=== PATIENT | female | born 1975 | race Caucasian/White ===

== ENCOUNTER 2018-09-08 14:53 | Outpatient (CLI) | payer OTHER | END 2018-09-08 14:54 | disposition home or self-care (01) | LOC: BICMAMMO 14:53 | PROVIDERS: ATTEND Obstetrics & Gynecology | DX: Z12.31 Encounter for screening mammogram for malignant neoplasm of breast (principal); Z80.3 Family history of malignant neoplasm of breast | CPT/HCPCS: 77063; 77067 ==

== ENCOUNTER 2019-02-01 12:34 | Outpatient (CLI) | payer OTHER ==
--- NOTE | 2019-02-01 13:34 | MRI ---
Exam: MRI cervical spine without contrast HISTORY: Neck pain. Right-sided arm pain and numbness, x2 weeks.. COMPARISON: None. FINDINGS: Appropriate T1 marrow signal intensity of the cervical vertebra. Vertebral body height is maintained . No fracture. No significant STIR hyperintensity to suggest vertebral body edema or ligamentous injury. Straightening of normal cervical lordosis is noted. 1 mm of anterolisthesis of C2 upon C3, 1. 2 mm anterolisthesis of C3 upon C4. Visualized brain parenchyma, cervical medullary junction, cervical cord and the upper thoracic cord h ave a normal size and signal intensity. Appropriate signal intensity of visualized spinal cord. C2-C3: No significant central canal stenosis or neural foraminal narrowing C3-C4: No significant central canal stenosis. Small right paracentral disc osteophyte complex does no t cause any mass effect upon the spinal cord or thecal sac. Neural foramina are patent. C4-C5: Broad-based disc osteophyte complex deforms the ventral thecal sac and deforms the ventral cor d. Subarachnoid space is maintained. Mild central canal stenosis. Mild right foraminal narrowing due to uncovertebral hypertrophy. Left neural foramen is patent C5-C6: Broad-based disc osteophyte complex abuts the thecal sac. Ventral subarachnoid space is slight ly effaced secondary to left paracentral. Mild central canal stenosis. Mild right and moderate left foraminal narrowing. C6-C7: Broad-based disc osteophyte complex with a right paracentral component. Mild central canal janell nosis. Moderate to severe right foraminal narrowing due to disc material as well as uncovertebral hypertrophy. Left neural foramen is patent C7-T1: No significant central canal stenosis. Neural foramina are patent. IMPRESSION: 1. Multilevel degenerative changes of the cervical spine as detailed above. Varying degrees of centra l canal stenosis as detailed above 2. Moderate to severe right foraminal narrowing in part due to disc material as well as uncovertebral hypertrophy. 3. Spondylolisthesis and straightening of normal cervical lordosis as described above. Transcribed Date/Time: 02/01/2019 2:20 PM
== END 2019-02-01 12:35 | disposition home or self-care (01) ==
LOC: TBSIIMAG 12:34
PROVIDERS: ATTEND Neurological Surgery
DX: M47.22 Other spondylosis with radiculopathy, cervical region (principal); M48.02 Spinal stenosis, cervical region; M43.12 Spondylolisthesis, cervical region; M40.50 Lordosis, unspecified, site unspecified
CPT/HCPCS: 72141

== ENCOUNTER 2019-02-27 07:11 | Day surgery (SDC) | payer OTHER ==
[2019-02-27] MEDS ORDERED: Sodium Chloride 0.9% 10 ML ONE (09:52)
[2019-02-27] MEDS ORDERED: Fentanyl 250 MCG/5 ML VIAL ONE (09:58)
[2019-02-27 10:02] LABS: #Basophils 0.1 thou/uL (0.0-0.2); #Eosinphils 0.1 thou/uL (0.0-0.7); #Lymphocytes 2.2 thou/uL (1.20-3.40); #Monocytes 0.6 thou/uL (0.11-0.59); %Basophils 1.4 % (0.0-1.0); %Eosinophils 1.2 % (0.0-10.0); %Monocytes 7.2 % (0.0-10.0); %Neutrophils 62.3 % (42.0-75.0); Hemoglobin 14.7 g/dL (12.0-16.0); Mean Corpuscular HGB CONC 34.6 g/dL (32.0-36.0); Mean Corpuscular Hemoglobin 32.7 pg (27.0-31.0); Mean Corpuscular Volume 94.6 fL (78.0-98.0); Mean Platelet Volume 7.7 fL (7.4-10.4); Platelet Count 360 thou/uL (130-400); RBC Distribution Width 12.3 % (11.5-14.5); Red Blood Cell (RBC) Count 4.51 mill/uL (4.20-5.40)
[2019-02-27] MEDS ORDERED: Fentanyl 100 MCG/2 ML VIAL ONE ×3 (10:02→12:31)
[2019-02-27] MEDS ORDERED: Dexamethasone 20 MG/5 ML VIAL ONE (11:16)
[2019-02-27] MEDS ORDERED: PROPOFOL 200 MG/20 ML VIAL ONE (11:16)
[2019-02-27] MEDS ORDERED: Ondansetron PF 4 MG/2 ML Vial ONE (11:16)
[2019-02-27] MEDS ORDERED: Glycopyrrolate 0.2 MG/ML 5 ML SYRINGE ONE (11:16)
[2019-02-27] MEDS ORDERED: Rocuronium Bromide 10 MG/ML (10ML VIAL) ONE (11:16)
[2019-02-27] MEDS ORDERED: Lidocaine 1% PF 5 ML VIAL ONE (11:16)
[2019-02-27] MEDS ORDERED: HYDROmorphone 2 MG/ML VIAL ONE (11:51)
[2019-02-27] MEDS ORDERED: tiZANidine HCl 4 MG TAB ONE (12:20)
[2019-02-27] MEDS ORDERED: HYDROcodone/Acetaminophen 5/325 mg Tablet ONE (13:51)
--- NOTE | 2019-02-27 15:20 | OP ---
DATE OF PROCEDURE: 02/27/2019 HOSPITALIST PHYSICIAN: Kvng Sheth PA-C PROCEDURES PERFORMED: Anterior cervical diskectomy C6-C7, interbody arthrodesis, intervertebral biomechanical device, local morselized autograft, demineralized bone matrix, anterior titanium instrumentation, C6-C7. DESCRIPTION OF PROCEDURE: The patient was brought to the operating room and intubated. She was positioned supine with the head in modest extension on a gel-filled donut. An incision was made in the right precervical area and dissected medial to the sternocleidomastoid muscle, identified the anterior cervical spine and the level was confirmed by x-ray. We placed distraction across C6-C7. Using the operating microscope and microdissection techniques, we completely removed the intervertebral disk and osteophytic disease decompressing the neural elements to the level of the dura. The bony endplates were then decorticated for the purpose of arthrodesis and appropriate-sized intervertebral biomechanical PEEK device was brought into the field, filled with demineralized bone matrix, local morselized autograft, and tapped in place securely at C6-C7. Next, an anterior plate was brought into the field and secured to C6 and C7 using two 14-mm screws at each level. The wound was then extensively irrigated and MAC hemostasis was secured. The wound was closed in anatomic layers. Job ID: [id number]
== END 2019-02-27 14:25 | disposition home or self-care (01) ==
LOC: SDC 07:11
PROVIDERS: ATTEND Neurological Surgery
PROC: 0RG10A0 Fusion of Cervical Vertebral Joint with Interbody Fusion Device, Anterior Approach, Anterior Column, Open Approach (ICD-10-PCS; principal; 2019-02-27)
PROC: 0RB30ZZ Excision of Cervical Vertebral Disc, Open Approach (ICD-10-PCS; principal; 2019-02-27)
PROC: 0RG1070 Fusion of Cervical Vertebral Joint with Autologous Tissue Substitute, Anterior Approach, Anterior Column, Open Approach (ICD-10-PCS; principal; 2019-02-27)
DX: M50.123 Cervical disc disorder at C6-C7 level with radiculopathy (principal); F32.9 Major depressive disorder, single episode, unspecified; G43.909 Migraine, unspecified, not intractable, without status migrainosus
CPT/HCPCS: 76000; 85025; 93005; 93010; C1713; C1776; J0131; J0690; J1170; J3010; J3490

== ENCOUNTER 2019-03-15 15:11 | Outpatient (CLI) | payer OTHER ==
--- NOTE | 2019-03-15 16:21 | RAD ---
CERVICAL SPINE 3 VIEWS: INDICATION: Cervical radiculopathy. COMPARISON: Prior MRI of the cervical spine dated 02/01/2019. FINDINGS: Since the comparison examination, there has been interval placement of ACD at C6-7. There is some re versal of the cervical lordosis which is stable. Instrumentation projects in the expected position. There is mild prevertebral soft tissue swelling overlying the ACDF site, likely postsurgical in natu re. Lung apices are clear. Lateral masses are symmetric. IMPRESSION: Postoperative cervical spine. POS: CET
== END 2019-03-15 15:12 | disposition home or self-care (01) ==
LOC: TBSIIMAG 15:11
PROVIDERS: ATTEND Neurological Surgery
DX: M54.12 Radiculopathy, cervical region (principal); Z98.890 Other specified postprocedural states
CPT/HCPCS: 72040

== ENCOUNTER 2019-04-18 14:58 | Outpatient (CLI) | payer OTHER ==
--- NOTE | 2019-04-18 15:14 | RAD ---
EXAM: XR Cerv Sp Ap Lat STANDARD PROVIDED CLINICAL HISTORY: Follow-up surgery COMPARISON: 03/15/2019 FINDINGS: Cervical alignment appears unchanged. Changes of ACDF at C6-7 are redemonstrated, without evidence fo r hardware loosening or migration. Disc space narrowing and endplate degenerative changes at C5-6 redemonstrated. Visualized lung apices appear clear. No prevertebral soft tissue swelling apparent. IMPRESSION: Stable exam.
== END 2019-04-18 14:59 | disposition home or self-care (01) ==
LOC: TBSIIMAG 14:58
PROVIDERS: ATTEND Neurological Surgery
DX: M50.20 Other cervical disc displacement, unspecified cervical region (principal)
CPT/HCPCS: 72040

== ENCOUNTER 2019-09-27 14:55 | Outpatient (CLI) | payer BC ==
--- NOTE | 2019-09-27 16:08 | MMO ---
Right Breast MAMMO Unilat Diag DDI RT+CASSIE. CLINICAL HISTORY: Patient is 44 years old and is seen for additional evaluation requested from prior study. The patient has the following family history of breast cancer: grandmother, malignant (generic). The patient has no personal history of cancer. VIEWS: The views performed were: right craniocaudal spot compression with tomosynthesis; right mediolateral oblique spot compression with tomosynthesis; and right mediolateral with tomosynthesis. FILMS COMPARED: The present examination has been compared to prior imaging studies performed at [facility] on 09/05/2019, and at [facility] on 03/18/2017, 09/08/2018 and 09/27/2019. This study has been interpreted with the assistance of computer-aided detection. MAMMOGRAM FINDINGS: There are scattered fibroglandular densities. Finding 1: There is a round mass measuring 4 millimeters with circumscribed margins seen in the right breast at 9 o'clock. Cyst on ultrasound. Finding 2: There are several stable focal asymmetries seen in the right breast. There are no suspicious masses, suspicious calcifications, or new areas of architectural distortion. IMPRESSION: THERE IS NO MAMMOGRAPHIC EVIDENCE OF MALIGNANCY. A ROUTINE FOLLOW-UP MAMMOGRAM IN 1 YEAR IS RECOMMENDED. THE RESULTS OF THIS EXAM WERE SENT TO THE PATIENT. ACR BI-RADS Category 2 - Benign finding MAMMOGRAPHY NOTE: 1. A negative mammogram report should not delay a biopsy if a dominant of clinically suspicious mass is present. 2. Approximately 10% to 15% of breast cancers are not detected by mammography. 3. Adenosis and dense breasts may obscure an underlying neoplasm. Reported by: MAI SARAH MD Electonically Signed: [id number]
--- NOTE | 2019-09-27 16:13 | ULT ---
EXAM: RIGHT BREAST ULTRASOUND: 09/27/19 HISTORY: Abnormal mammographic finding at 9 o'clock in the right breast. The right breast was evaluated with attention to the 9 o'clock region, at approximately 5 cm from the nipple. There is a round 0.3 x 0.4 cm diameter cyst which appears to correspond to the nodular area on mammography. IMPRESSION: BIRADS 2: Benign Finding(s) Routine annual screening mammography (for women over age 40). Continued annual follow-up screening mammograms. POS: OFF
== END 2019-09-27 14:56 | disposition home or self-care (01) ==
LOC: BICMAMMO 14:55
PROVIDERS: ATTEND Student in an Organized Health Care Education/Training Program
DX: R92.2 Inconclusive mammogram (principal)
CPT/HCPCS: G0279

== ENCOUNTER 2020-11-07 15:12 | Outpatient (CLI) | payer BC | END 2020-11-07 15:13 | disposition home or self-care (01) | LOC: BICMAMMO 15:12 | PROVIDERS: ATTEND Student in an Organized Health Care Education/Training Program | DX: Z12.31 Encounter for screening mammogram for malignant neoplasm of breast (principal); Z80.3 Family history of malignant neoplasm of breast | CPT/HCPCS: 77063; 77067 ==

== ENCOUNTER 2021-07-28 08:15 | Emergency (ER) | payer BC ==
[2021-07-28] MEDS ORDERED: Ondansetron PF 4 MG/2 ML Vial ONE ×3 (09:28→12:06)
[2021-07-28] MEDS ORDERED: Morphine 4 MG/ML VIAL ONE ×3 (09:28→12:06)
[2021-07-28 09:44] LABS: #Eosinphils 0.2 thou/uL (0.0-0.7); #Lymphocytes 1.5 thou/uL (1.20-3.40); #Monocytes 0.6 thou/uL (0.11-0.59); #Neutrophils 5.8 thou/uL (1.40-6.50); %Basophils 0.4 % (0.0-1.0); %Eosinophils 2.1 % (0.0-10.0); %Lymphocytes 18.1 % (21.0-51.0); %Monocytes 7.1 % (0.0-10.0); %Neutrophils 72.4 % (42.0-75.0); Hemoglobin 13.1 g/dL (12.0-16.0); Mean Corpuscular HGB CONC 34.4 g/dL (32.0-36.0); Mean Corpuscular Hemoglobin 32.7 pg (27.0-31.0); Mean Corpuscular Volume 95.1 fL (78.0-98.0); Platelet Count 344 thou/uL (130-400); RBC Distribution Width 11.7 % (11.5-14.5); White Blood Cell (WBC) Count 8.1 thou/uL (4.8-10.8)
[2021-07-28 10:09] LABS: BHCG - Serum Negative (NEGATIVE); Pregs Control Background? CLEAR/WHITE (CLR/WHITE); Pregs Control Bar Appear? YES (CONTROL BAR)
[2021-07-28 10:16] LABS: Bacteria/HPF Rare-Few HPF (None Seen); Bilirubin Negative (Negative); Blood, Urine 3+ (Negative); Clarity Clear (Clear); Glucose, Urine (Dipstick) Normal (Negative); Ketone, Urine Negative (Negative); Leukocyte Negative Leu/uL (Negative); Nitrite Negative (Negative); Protein, Urine (Dipstick) Negative (Neg-Trace); RBC/HPF Greater than 50 HPF (0-3); Specific Gravity, Urine 1.014 (1.002-1.036); Squamous Epithelial 0-3 HPF (0-3); Urobilinogen Normal mg/dL (Less than 2); WBC/HPF 0-3 HPF (0-3)
[2021-07-28] MEDS ORDERED: Ketorolac Tromethamine 30 MG/ML VIAL ONE (10:18)
[2021-07-28 10:22] LABS: ALT (SGPT) 46 U/L (8-55); AST (SGOT) 30 U/L (5-34); Albumin 4.1 g/dL (3.5-5.0); Alkaline Phosphatase 61 U/L (40-110); Anion Gap 12 mmol/L (10-20); BUN (Urea Nitrogen) 11 mg/dL (7.0-18.7); Bilirubin, Total 0.6 mg/dL (0.2-1.2); Calc. Creatinine Clearance 0 mL/min (70-130); Calcium 9.6 mg/dL (7.8-10.44); Carbon Dioxide 22 mmol/L (22-29); Chloride 105 mmol/L (98-107); Globulin 2.5 g/dL (2.4-3.5); Glucose 91 mg/dL (70-105); Lipase 31 U/L (8-78); Potassium 4.2 mmol/L (3.5-5.1); Protein, Total 6.6 g/dL (6.0-8.3); Sodium 135 mmol/L (136-145)
[2021-07-28 10:36] LABS: SARS-CoV-2 NAA Rapid Test Not Detected (NotDetected)
[2021-07-28] MEDS ORDERED: Iopamidol-370 76% 500 ML 1 ML ONE (10:56)
[2021-07-28 12:38] LABS: PTT 29.3 sec (22.9-36.1); Prothrombin Time 12.7 sec (12.0-14.7)
== END 2021-07-28 13:35 | disposition home or self-care (01) ==
LOC: ERS 08:15
DX: N83.201 Unspecified ovarian cyst, right side (principal); Z20.822 Contact with and (suspected) exposure to COVID-19
CPT/HCPCS: 0240U; 36415; 71045; 74177; 76856; 80053; 81003; 81015; 83690; 84703; 85025; 85610; 85730; 93005; 96374; 96375; 96376; J1885; J2270; J2405; Q9967

== ENCOUNTER 2022-12-21 15:07 | Outpatient (CLI) | payer BC | END 2022-12-21 15:08 | disposition home or self-care (01) | LOC: BICRAD 15:07 | PROVIDERS: ATTEND Neurological Surgery | DX: M54.2 Cervicalgia (principal); M47.812 Spondylosis without myelopathy or radiculopathy, cervical region | CPT/HCPCS: 72040 ==

== ENCOUNTER 2023-02-19 12:07 | Outpatient (CLI) | payer BC | END 2023-02-19 12:08 | disposition home or self-care (01) | LOC: BICRAD 12:07 | PROVIDERS: ATTEND Neurological Surgery | DX: M51.36 Other intervertebral disc degeneration, lumbar region (principal); M47.816 Spondylosis without myelopathy or radiculopathy, lumbar region; Z98.890 Other specified postprocedural states | CPT/HCPCS: 72100 ==

== ENCOUNTER 2023-04-05 16:06 | Outpatient (CLI) | payer BC | END 2023-04-05 16:07 | disposition home or self-care (01) | LOC: RAD 16:06 | PROVIDERS: ATTEND Neurological Surgery | DX: M51.36 Other intervertebral disc degeneration, lumbar region (principal); Z98.890 Other specified postprocedural states; Z98.1 Arthrodesis status | CPT/HCPCS: 72100 ==

== ENCOUNTER 2023-04-06 15:27 | Outpatient (CLI) | payer BC | END 2023-04-06 15:28 | disposition home or self-care (01) | LOC: BICMAMMO 15:27 | PROVIDERS: ATTEND Student in an Organized Health Care Education/Training Program | DX: Z12.31 Encounter for screening mammogram for malignant neoplasm of breast (principal); Z80.3 Family history of malignant neoplasm of breast | CPT/HCPCS: 77063; 77067 ==

== ENCOUNTER 2023-09-22 14:58 | Outpatient (CLI) | payer BC | END 2023-09-22 14:59 | disposition home or self-care (01) | LOC: BICRAD 14:58 | PROVIDERS: ATTEND Family Medicine | DX: R05.1 Acute cough (principal) | CPT/HCPCS: 71046 ==

== ENCOUNTER 2024-08-28 09:49 | Outpatient (CLI) | payer BC | END 2024-08-28 09:50 | disposition home or self-care (01) | LOC: MRI 09:49 | PROVIDERS: ATTEND Neurological Surgery | DX: M50.30 Other cervical disc degeneration, unspecified cervical region (principal); M51.360 Other intervertebral disc degeneration, lumbar region with discogenic back pain only; M43.16 Spondylolisthesis, lumbar region; M47.816 Spondylosis without myelopathy or radiculopathy, lumbar region; M47.812 Spondylosis without myelopathy or radiculopathy, cervical region; Z98.1 Arthrodesis status; Z98.890 Other specified postprocedural states | CPT/HCPCS: 72040; 72100; 72141; 72148 ==

== ENCOUNTER 2024-09-22 14:58 | Outpatient (CLI) | payer BC | END 2024-09-22 14:59 | disposition home or self-care (01) | LOC: BICMAMMO 14:58 | PROVIDERS: ATTEND Student in an Organized Health Care Education/Training Program | DX: Z12.31 Encounter for screening mammogram for malignant neoplasm of breast (principal); Z80.3 Family history of malignant neoplasm of breast | CPT/HCPCS: 77063; 77067 ==

== ENCOUNTER 2025-05-22 16:20 | Outpatient (CLI) | payer BC | END 2025-05-22 16:21 | disposition home or self-care (01) | LOC: RAD 16:20 | PROVIDERS: ATTEND Psychiatry & Neurology Clinical Neurophysiology | DX: M48.062 Spinal stenosis, lumbar region with neurogenic claudication (principal); Z98.890 Other specified postprocedural states | CPT/HCPCS: 72100 ==